=== PATIENT | male | born 1955 | race Caucasian/White ===

== ENCOUNTER 2016-11-26 08:38 | Emergency (ER) | payer OTHER ==
[~2016-11-26] VITALS: Ht 182.9 cm; Wt 73.4 kg
[2016-11-26] MEDS ORDERED: PRED5EL PO (08:49)
--- NOTE | 2016-11-26 09:49 | REP ---
RIGHT 5TH DIGIT: Five views of the right 5th digit are performed. There is an oblique fracture at the base of the proximal phalanx. There is anterior displacement and posterior angulation. There is also mild lateral displacement. There is associated soft tissue swelling. Signed by Donta Turcios MD 11/26/2016 05:01 P
[2016-11-26] MEDS ORDERED: NORCOTAB PO (10:22)
[2016-11-26 10:31] VITALS: BP 172/92
== END 2016-11-26 11:11 | disposition home or self-care (01) ==
LOC: M ED 09:11
DX: S62.617A Displaced fracture of proximal phalanx of left little finger, initial encounter for closed fracture (principal); W18.09XA Striking against other object with subsequent fall, initial encounter; Y92.019 Unspecified place in single-family (private) house as the place of occurrence of the external cause; Y93.9 Activity, unspecified; Y99.8 Other external cause status; Z79.899 Other long term (current) drug therapy; Z88.1 Allergy status to other antibiotic agents